=== PATIENT | male | born 1945 | race Hispanic/Latino ===

== ENCOUNTER → 2021-07-13 | Outpatient (CLI) | payer MEDICARE ==
[~2021-07-13] MED LIST: IOHEXOL 350 MG/ML 100ML INFUS..BTL IV ONE
== END | disposition home or self-care (01) ==
LOC: RAH 09:31
PROVIDERS: ATTEND Family Medicine
DX: I70.0 Atherosclerosis of aorta (principal); I50.23 Acute on chronic systolic (congestive) heart failure; I25.119 Atherosclerotic heart disease of native coronary artery with unspecified angina pectoris; E44.1 Mild protein-calorie malnutrition; N99.89 Other postprocedural complications and disorders of genitourinary system; K72.90 Hepatic failure, unspecified without coma; D50.8 Other iron deficiency anemias; R06.00 Dyspnea, unspecified; R06.02 Shortness of breath; I10 Essential (primary) hypertension; F10.10 Alcohol abuse, uncomplicated; R41.841 Cognitive communication deficit; N13.9 Obstructive and reflux uropathy, unspecified; J44.1 Chronic obstructive pulmonary disease with (acute) exacerbation; G31.09 Other frontotemporal neurocognitive disorder; Z85.51 Personal history of malignant neoplasm of bladder; Z96.0 Presence of urogenital implants; Z85.038 Personal history of other malignant neoplasm of large intestine; Z90.6 Acquired absence of other parts of urinary tract; Z90.49 Acquired absence of other specified parts of digestive tract
CPT/HCPCS: 74177; Q9967